=== PATIENT | female | born 1995 ===

== ENCOUNTER 2018-02-20 08:07 | Outpatient (CLI) | payer OTHER ==
--- NOTE | 2018-02-20 09:08 | Ultrasound Report ---
LEFT BREAST ULTRASOUND: 02/20/18 08:07:00 CLINICAL: 22-year-old with a palpable lump felt by her doctor. The requisition states "mass of axillary tail of left breast." COMPARISON: None. FINDINGS: Ultrasound of the upper outer left breast was performed. A 5 x 2 x 5 mm subcutaneous oval solid smooth nodule versus prominent fat lobule at 3 o'clock 10 cm from the nipple. No other mass. No cyst or shadowing. IMPRESSION: A probably benign 5 mm solid nodule versus prominent fat lobule at 3 o'clock left breast. BI-RADS 3 - - Probably Benign RECOMMENDATION: Six month followup ultrasound to reevaluate the nodule for growth.
== END 2018-02-20 08:08 | disposition home or self-care (01) ==
LOC: SPVWC 08:07
PROVIDERS: ATTEND Family Medicine
DX: N63.32 Unspecified lump in axillary tail of the left breast (principal)